=== PATIENT | male | born 1945 | race Two or more races ===

== ENCOUNTER 2019-01-21 08:13 | Inpatient (IN) | payer MEDICAID, MEDICARE ==
[~2019-01-21] VITALS: Ht 167.6 cm; Wt 68.6 kg
[2019-01-23 12:54] VITALS: BP 145/85
== END 2019-01-23 14:46 | disposition home or self-care (01) | DRG 377 ==
LOC: ED 09:00 → EDIP 09:45 → CCU 13:06 → 3NE 01-22 11:06 → DCLOUNGE 01-23 14:40
PROVIDERS: ADMIT Hospitalist; ATTEND Internal Medicine
PROC: 30233N1 Transfusion of Nonautologous Red Blood Cells into Peripheral Vein, Percutaneous Approach (ICD-10-PCS; 2019-01-21)
PROC: 0DB68ZX Excision of Stomach, Via Natural or Artificial Opening Endoscopic, Diagnostic (ICD-10-PCS; principal; 2019-01-22)
DX: K25.4 Chronic or unspecified gastric ulcer with hemorrhage (principal); R57.8 Other shock; D62 Acute posthemorrhagic anemia; E87.0 Hyperosmolality and hypernatremia; E16.2 Hypoglycemia, unspecified; R55 Syncope and collapse; E88.09 Other disorders of plasma-protein metabolism, not elsewhere classified; K44.9 Diaphragmatic hernia without obstruction or gangrene; M19.90 Unspecified osteoarthritis, unspecified site; W18.39XA Other fall on same level, initial encounter; Y93.89 Activity, other specified; Y92.89 Other specified places as the place of occurrence of the external cause; Y99.8 Other external cause status
CPT/HCPCS: 36415; 36430; 74021; 80048; 80053; 81003; 83690; 83735; 84100; 85014; 85018; 85025; 85610; 85730; 86850; 86900; 86923; 87081; 88305; 88342; 93005; 96365; G0378; J2250; J3010; C9113; J3475; J7030; P9016

== ENCOUNTER 2019-03-28 09:09 | Day surgery (SDC) | payer MEDICAID, MEDICARE ==
[~2019-03-28] VITALS: Ht 162.6 cm; Wt 75.0 kg
[~2019-03-28 09:09] MED LIST: PANT40TA5 PO; SUCR1ORA5 PO
[2019-03-28] MEDS ORDERED: CLAR-36 PO (09:57)
[2019-03-28] MEDS ORDERED: AMOX-291 PO (09:57)
[2019-03-28 09:58] VITALS: BP 164/85
[2019-03-28] MEDS ORDERED: OMEP-110 PO (10:06)
[2019-03-28] MEDS ORDERED: SUCR1TAB33 PO (10:06)
[2019-03-28] MEDS ORDERED: LACTATED RINGERS 1,000 ML IV SCH (10:20)
[2019-03-28] MEDS ORDERED: PHENYLEPHRINE 10 MG/ML ONE (11:15)
[2019-03-28] MEDS ORDERED: PROPOFOL 10 MG/ML, 20ML ONE ×2 (11:19)
== END 2019-03-28 13:10 | disposition home or self-care (01) ==
LOC: OUT 09:09
PROVIDERS: ATTEND Internal Medicine Geriatric Medicine
DX: K25.9 Gastric ulcer, unspecified as acute or chronic, without hemorrhage or perforation (principal); K29.60 Other gastritis without bleeding; K20.9 Esophagitis, unspecified; Z79.899 Other long term (current) drug therapy
CPT/HCPCS: 43239; 43259; 88305; 88312; 88342; J2370; J2704